=== PATIENT | female | born 1975 | race Caucasian/White ===

== ENCOUNTER → 2016-08-21 | Outpatient (CLI) | payer OTHER ==
[2016-08-21 11:08] LABS: HEMATOCRIT 42.5 % (37.0-47.0); HEMOGLOBIN 14.7 g/dL (12.0-16.0); MEAN CORPUSCULAR HEMOGLOBIN 30.8 PG (27-31); MEAN CORPUSCULAR HGB CONC 34.6 g/dL (33-37); MEAN PLATELET VOLUME 9.1 FL (7.4-12.2); RED BLOOD COUNT 4.78 10^6/uL (4.20-5.40); WHITE BLOOD COUNT 21.05 10^3/uL (4.8-10.8)
[2016-08-21 11:20] LABS: ASPARTATE AMINO TRANSFERASE 63 IU/L (8-39); BILIRUBIN,TOTAL 0.4 mg/dL (0.3-1.2); BLOOD UREA NITROGEN 12 mg/dL (7-22); CALCIUM 9.8 mg/dL (8.7-10.7); CHLORIDE 105 meq/L (98-112); CREATININE 0.6 mg/dL (0.50-1.20); EST GLOMERULAR FILTRATION > 60 (>60 ml/min/1.73m(2)); GLUCOSE 120 mg/dL (78-110); POTASSIUM 3.6 meq/L (3.8-5.2); SODIUM 141 meq/L (135-145); TOTAL PROTEIN 6.9 g/dL (6.1-8.0)
[2016-08-21 11:41] LABS: PERCENT IRON SATURATION 34.97 % (14-50)
[2016-08-21 12:57] LABS: FREE T4 (FREE THYROXINE) 1.01 ng/dL (0.93-1.71)
[2016-08-21 14:59] LABS: URIC ACID 3.5 mg/dl (2.5-7.0)
[2016-08-21 15:01] LABS: C-REACTIVE PROTEIN < 0.5 mg/dL (0.0-0.9)
[2016-08-24 18:53] LABS: ANTINUCLEAR ANTIBODY 0.4 U (())
[2016-08-27 15:22] LABS: CYCLIC CITRULLINATED PEPTIDEAB <15.6 U (())
== END ==
LOC: LAB 10:56
PROVIDERS: ATTEND Family Medicine
DX: M15.8 Other polyosteoarthritis (principal); G25.81 Restless legs syndrome; M25.511 Pain in right shoulder
CPT/HCPCS: 36415; 80053; 82728; 83540; 83550; 84439; 84443; 84550; 85027; 85652; 86038; 86140; 86200; 86431

== ENCOUNTER → 2016-08-23 | Outpatient (CLI) | payer OTHER ==
--- NOTE | 2016-08-23 09:38 | DI ---
PA /LATERAL CHEST X-RAY, 08/23/2016 8:12 AM : Clinical History: Asthma. Smoker. Previous Exam: 03/18/2016. There is no acute soft tissue or bony abnormality. Heart size is normal. Lungs are clear. Mediastinal structures are normal. There are no pulmonary nodules. Reading: Normal chest x-ray. There has been no change.
== END ==
LOC: RAD 08:01
PROVIDERS: ATTEND Allergy & Immunology
DX: J45.909 Unspecified asthma, uncomplicated (principal); F17.210 Nicotine dependence, cigarettes, uncomplicated
CPT/HCPCS: 71020

== ENCOUNTER → 2016-09-02 | Outpatient (CLI) | payer OTHER ==
--- NOTE | 2016-09-02 17:01 | DI ---
MRI CERVICAL SPINE SCAN, 09/02/2016 1:07 PM: Clinical History: Cervical radiculopathy. Previous Exam: 09/14/2014. Sequences: Sagittal T1and T2 weighted. Axial T2 PLUS and FE 3D DUAL. Coronal T1 scans through the upp er cervical spine. The patient was moving and coughing during every sequence, and there are substantial motion artifacts present. The technologist attempted to educate the patient about the importance of not moving. On he r previous scans, there was slight motion artifact as well. The vertebral bodies are of normal height and size. The disc spaces are of normal height. The disc sp aces from C2-3 through C5-6 show mild desiccation change. The cervical cord and cerebellar tonsils ar e normal. There is no obvious abnormality seen on the sagittal scans. On the axial scans, no abnormal ity is noted from C2-3 through C6-7. C7-T1 has substantial scan artifact. The disc spaces from T1-2 t hrough T4-5 are normal. Readin. Technically suboptimal study because of extensive motion artifacts, more than on the previous penny dy. The patient was changing her position during the study. 2. No gross abnormalities are noted from C2-3 through C6-7 and from T1-2 through T4-5.
== END ==
LOC: MRI 13:02
PROVIDERS: ATTEND Physician Assistant
DX: M54.12 Radiculopathy, cervical region (principal)
CPT/HCPCS: 72141

== ENCOUNTER → 2016-09-04 | Outpatient (CLI) | payer OTHER ==
--- NOTE | 2016-09-04 08:52 | DI ---
GALLBLADDER AND LIVER ULTRASOUND, 09/04/2016 7:56 AM: Clinical History: Elevated liver function tests. Previous Exam: 09/17/2013. Technique: Scans are performed through the right upper quadrant in multiple projections. The patient was rolled from side to side and the gallbladder was balloted with the probe to facilitate visualizat ion of small gallstones. The gallbladder is well distended and has a normal wall thickness. There are no gallstones. The commo n bile duct measures 5 mm. The pancreas is visualized from the head to the body and is normal. The vi sualized portions of the liver, right kidney, and IVC are normal. The aorta is obscured by gas. Readin. The liver is normal. The common bile duct measures 5 mm. 2. The gallbladder, right kidney, IVC, and pancreas are normal.
== END ==
LOC: US 07:52
PROVIDERS: ATTEND Family Medicine
DX: R94.5 Abnormal results of liver function studies (principal)
CPT/HCPCS: 76705

== ENCOUNTER → 2016-09-18 | Outpatient (CLI) | payer OTHER ==
--- NOTE | 2016-09-18 16:36 | DI ---
CERVICAL MYELOGRAM, 09/18/2016 9:19 AM: Clinical History: Cervical radiculopathy. Previous Exam: X-rays cervical spine performed August 03, 2015 Informed signed consent was obtained prior to the procedure. The patient was informed of benefits and risks, to include but not be limited, to allergies to medications (skin preparation agents, local an esthetic, and contrast agent), infection, and "spinal" headaches. The lower back was prepped with Bet adine solution and alcohol. 1% lidocaine without epinephrine was used for intradermal and subcutaneou s local anesthesia. Under fluoroscopic guidance, a 22 gauge spinal needle was then introduced into th e spinal canal from the left paraspinal approach at the level of L4. A single pass was performed and this revealed droplets of clear colorless CSF. 13 of Omipaque 300 was injected into the spinal canal with fluoroscopic monitoring. Spot films of the lumbar spine were obt ained followed by a cross table lumbar spine view. The patient tolerated the procedure well and was t ransferred to the CT scan suite for the CT myelogram. Following the CT scan, the patient was observed in the department for approximately 1 hour. The patie nt was then discharged home and was instructed to minimize activity for the rest of the day. The peggy ent was also instructed to push fluids for the remainder of the day and to sleep on an extra pillow w ith the head up if possible. The patient was advised to watch for signs of an infection (including bu t not limited to redness, swelling, fever) or an unusually severe headache. The patient was instructe d to either contact the x-ray department directly or to report to the Emergency Room immediately if p roblems arose. Reading: Successful myelogram.
--- NOTE | 2016-09-18 16:36 | DI ---
CT CERVICAL SPINE W/CONTRAST,09/18/2016 9:19 AM: Clinical History: Cervical radiculopathy. Previous Exam: MRI cervical spine performed September 02, 2016 Findings: Multiple helically acquired CT images are obtained through the cervical spine following a the intrath ecal administration of Isovue 300, and demonstrates clear lungs. Vertebral body height is preserved. Intervertebral disc height is also preserved. The spinal cord susanne cends normally with normal course and caliber. There are broad-based disc bulges measuring less than 3 mm worst at the C6/7 level where there is no significant central canal stenosis and no neural foraminal narrowing. The parapharyngeal fat is normal and symmetric. The posterior fossa is unremarkable without evidence of Chiari malformation. Visualized portions of the clivus are normal. The paraspinal musculature is unremarkable. Impression: Very minimal degenerative disc disease at C6/7 without significant stenosis.
== END ==
LOC: RAD 09:14
PROVIDERS: ATTEND Physician Assistant
DX: M54.12 Radiculopathy, cervical region (principal)
CPT/HCPCS: 72126; 72240

== ENCOUNTER → 2016-09-27 | Outpatient (CLI) | payer OTHER ==
[2016-09-27 10:39] LABS: HEMATOCRIT 41.7 % (37.0-47.0); HEMOGLOBIN 14.2 g/dL (12.0-16.0); MEAN CORPUSCULAR HEMOGLOBIN 30.3 PG (27-31); MEAN CORPUSCULAR HGB CONC 34.1 g/dL (33-37); MEAN CORPUSCULAR VOLUME 89.1 FL (81-99); MEAN PLATELET VOLUME 9.2 FL (7.4-12.2); RED BLOOD COUNT 4.68 10^6/uL (4.20-5.40)
== END ==
LOC: LAB 10:26
PROVIDERS: ATTEND Family Medicine
DX: D72.829 Elevated white blood cell count, unspecified (principal)
CPT/HCPCS: 36415; 85027

== ENCOUNTER → 2016-10-24 | Outpatient (CLI) | payer OTHER | LOC: MOB LAB 11:10 | PROVIDERS: ATTEND Nurse Practitioner Family | DX: N64.4 Mastodynia (principal) | CPT/HCPCS: 36415; 82670; 83001; 83002; 84146 ==

== ENCOUNTER 2016-10-31 07:33 | Day surgery (SDC) | payer OTHER ==
[~2016-10-31 07:33] MED LIST: BUPivacaine Inj 0.5% PF (5mg/ml) 10ml vial IV ONE
[2016-10-31 07:54] VITALS: TEMP 97.9
[2016-10-31 08:19] VITALS: RESP 18
--- NOTE | 2016-10-31 08:23 | GEN.OPNOTE ---
Facet Injection Procedure: Other (Patient in prone position. Prepped, 3cc of lidocaine as local. 22 gauge spinal needle placed at centroid of articular pillar at C3, C4, C5 level. .5cc .5% bupivicaine injected. Procedure, Right C3, C4, C5 MBB) -: Consent: Rationale for procedure, nature of procedure, possible risks and benefits were discussed with the patient. Risks including allergic reaction to medications, known effects of steroid medications including transient elevations in blood sugar with aggravation of pre-existing diabetes and remote risk of aseptic necrosis of the hip. Infection or bleeding with potential risk of neurologic injury with weakness, paralysis or were all reviewed with the patient who wished to proceed. Anesthesia, sedation: No intravenous access or sedation was used. Physiologic monitoring of pulse and oxygen saturation was utilized. Procedure: The patient was placed prone on the operating room table, prepped with Chloroprep and sterilely draped. The skin was anesthetized with 1% Buffered Xylocaine. Under fluoroscopic control a 22-gauge needle was advanced [ ] facet joint on the []. Omnipaque was injected under real-time fluoroscopy demonstrating an facet arthrogram. Following this [] ml of a mixture of Celestone (6mg/ml) and Ropivacaine was injected. AP and lateral images of the final needle placement was obtained. The needle was removed and the patient returned to the post procedure recovery room where they were monitored for any side effects. Pain assessment: Preprocedure pain []/10, post procedure pain []/10. Discharge instructions: Patient was given a pain log to be filled out and returned. A delayed response to the steroids of 2-5 days was discussed.
== END 2016-10-31 08:20 | disposition home or self-care (01) ==
LOC: SDSC 07:33
PROVIDERS: ATTEND Pain Medicine Interventional Pain Medicine
DX: M54.2 Cervicalgia (principal)
CPT/HCPCS: 76000; J3490

== ENCOUNTER → 2016-11-06 | Outpatient (CLI) | payer OTHER ==
--- NOTE | 2016-11-06 14:03 | DI ---
US BRST U/L OR B/L, BREAST TOMOSYNTHESIS DIG U/L, MAMMO U/L DIAGNOSTIC,11/06/2016 12:56 PM: Clinical History: Asymmetric density within the right deep breast just anterior to the pectoralis mus nader which appears to be deep to the nipple right upper density chest wall 14 cm from the nipple. Previous Exam: Multiple prior comparisons dating back to 2012 Findings: Breast tomosynthesis is performed which only partially visualizes the density on the CC tomograms. On the MLO tomograms, this appears to represent normal fibroglandular elements. Physical examination re vealed no palpable abnormality. Sonographic evaluation revealed normal fibroglandular elements withou t any evidence of spiculation nor hypoechoic mass. There is no architectural distortion. Looking through multiple prior exams, this density was probably present on the prior exams, but was n ot as prominent as it was on the most recent exam due to the posterior location. Impression: Asymmetric density only partially visible on prior exams which appears to be related to technique rat her than due to an enlarging mass in the deep subareolar breast 14 cm from the nipple. This is a probably benign finding. Recommend six-month followup imaging on the right breast in the CC and MLO projections with exaggerated CC views. This was discussed with the patient who agreed with this course of action. BI-RADS: III probably benign findings.
== END ==
LOC: MAMMO 12:49
PROVIDERS: ATTEND Nurse Practitioner Family
DX: R92.8 Other abnormal and inconclusive findings on diagnostic imaging of breast (principal)
CPT/HCPCS: 76641; G0206; G0279

== ENCOUNTER → 2017-01-09 | Outpatient (CLI) | payer OTHER | LOC: LAB 08:31 | PROVIDERS: ATTEND Physician Assistant | DX: M83.3 Adult osteomalacia due to malnutrition (principal); R20.2 Paresthesia of skin; M83.2 Adult osteomalacia due to malabsorption; F17.200 Nicotine dependence, unspecified, uncomplicated | CPT/HCPCS: 36415; 82306; 82607; 82746; 84443 ==

== ENCOUNTER → 2017-01-28 | Outpatient (CLI) | payer OTHER ==
[2017-01-28 08:15] LABS: BASOPHILS % (AUTO) 2.6 % (0-1); EOSINOPHILS # (AUTO) 0.11 10*3/UL; EOSINOPHILS % (AUTO) 1.4 % (0-8); HEMATOCRIT 41.9 % (37.0-47.0); HEMOGLOBIN 14.6 g/dL (12.0-16.0); LYMPHOCYTES # (AUTO) 1.62 10*3/uL; MEAN CORPUSCULAR HEMOGLOBIN 30.7 PG (27-31); MEAN CORPUSCULAR HGB CONC 34.8 g/dL (33-37); MEAN CORPUSCULAR VOLUME 88.2 FL (81-99); MEAN PLATELET VOLUME 9.3 FL (7.4-12.2); MONOCYTES # (AUTO) 1.07 10*3/UL (0.3-0.8); MONOCYTES % (AUTO) 13.7 % (5-15); NEUTROPHILS % (AUTO) 61.3 % (50-80); RED BLOOD COUNT 4.75 10^6/uL (4.20-5.40)
[2017-01-28 08:20] LABS: BILIRUBIN,URINE NEGATIVE (NEG); CLARITY,URINE Slightly Cloudy (CLEAR); COLOR,URINE YELLOW; GLUCOSE, URINE (UA) NEGATIVE (NEG); NITRATE,URINE NEGATIVE (NEG); OCCULT BLOOD,URINE NEGATIVE (NEG); PH,URINE 8.5 (5.0-8.5); PROTEIN,URINE NEGATIVE (NEG); UROBILINOGEN,URINE 0.2 mg/dL (0.2)
[2017-01-28 08:22] LABS: PLATELET MORPHOLOGY COMMENT NORMAL MORPHOLOGY (NORM); RBC MORPHOLOGY COMMENT NORMAL MORPHOLOGY (NORM); WBC MORPHOLOGY COMMENT NORMAL MORPHOLOGY (NORM)
--- NOTE | 2017-01-28 08:38 | EKG ---
[address] [place] [address] Measurements Intervals Green Rate: 77 P: 93 AR: 193 QRS: 99 QRSD: 106 T: 10 QT: 376 QTc: 408 Interpretive Statements SINUS RHYTHM BORDERLINE RIGHT AXIS DEVIATION NONSPECIFIC ST & T-WAVE ABNORMALITY, CONSIDER INFEROLATERAL ISCHEMIA Compared to ECG 03/06/2016 11:30:13 T-wave abnormality now present Electronically Signed On 01-28-17 09:50:51 MDT by Gera Valverde [email or web address]
[2017-01-28 08:45] LABS: BLOOD UREA NITROGEN 14 mg/dL (7-22); CALCIUM 9.3 mg/dL (8.7-10.7); EST GLOMERULAR FILTRATION > 60 (>60 ml/min/1.73m(2))
[2017-01-28 08:47] LABS: RBC,URINE 0-1 /hpf; URINE SAMPLE TYPE CLEAN CATCH URINE
[2017-01-28 08:48] LABS: SQUAMOUS EPITHELIAL CELL,UR MANY; URINE CRYSTALS MODERATE
--- NOTE | 2017-01-28 09:21 | DI ---
PA /LATERAL CHEST X-RAY, 01/28/2017 8:09 AM : Clinical History: Smoker Previous Exam: August 23, 2016 There is no acute soft tissue or bony abnormality. Heart size is normal. Lungs are clear. Mediastinal structures are normal. There are no pulmonary nodules. IMPRESSION: No acute cardiopulmonary disease.
== END ==
LOC: LAB 07:54
PROVIDERS: ATTEND Orthopaedic Surgery
DX: Z01.812 Encounter for preprocedural laboratory examination (principal); Z01.810 Encounter for preprocedural cardiovascular examination; Z01.818 Encounter for other preprocedural examination; M17.11 Unilateral primary osteoarthritis, right knee; Z72.0 Tobacco use
CPT/HCPCS: 36415; 71020; 80053; 81001; 85025; 93005; 93010

== ENCOUNTER → 2017-02-04 | Outpatient (CLI) | payer OTHER ==
[2017-02-04 15:34] LABS: BILIRUBIN,URINE NEGATIVE (NEG); CLARITY,URINE CLEAR (CLEAR); COLOR,URINE YELLOW; GLUCOSE, URINE (UA) NEGATIVE (NEG); NITRATE,URINE NEGATIVE (NEG); OCCULT BLOOD,URINE NEGATIVE (NEG); PROTEIN,URINE NEGATIVE (NEG); UROBILINOGEN,URINE 0.2 mg/dL (0.2)
[2017-02-04 15:40] LABS: SQUAMOUS EPITHELIAL CELL,UR MODERATE; TRICHOMONAS,URINE MODERATE; URINE SAMPLE TYPE VOIDED SPECIMEN; WBC,URINE 0-1
== END ==
LOC: LAB 15:18
PROVIDERS: ATTEND Nurse Practitioner Family
DX: Z01.812 Encounter for preprocedural laboratory examination (principal); M25.561 Pain in right knee
CPT/HCPCS: 81001